=== PATIENT | female | born 1995 | race Caucasian/White ===

== ENCOUNTER 2020-03-05 10:32 | Emergency (ER) | payer SELFPAY ==
[~2020-03-05] VITALS: Ht 172.7 cm; Wt 109.0 kg
[2020-03-05 10:45] VITALS: BP 130/82
== END 2020-03-05 11:12 | disposition left against medical advice (07) ==
LOC: ER 10:32
DX: J11.1 Influenza due to unidentified influenza virus with other respiratory manifestations (principal); Z53.21 Procedure and treatment not carried out due to patient leaving prior to being seen by health care provider